=== PATIENT | male | born 1960 | race Caucasian/White ===

== ENCOUNTER 2020-02-23 09:40 | Outpatient (CLI) | payer MEDICARE, OTHER, SELFPAY ==
[2020-02-23 10:15] LABS: Basophils Absolute Auto 0.1 K/mm3 (0.0-0.1); Basophils Percent Auto 0.9 % (0.2-1.2); Eosinophils Absolute Auto 0.3 K/mm3 (0-0.3); Eosinophils Percent Auto 2.6 % (0-4.4); Hematocrit 57.7 % (42.0-52.0); Hemoglobin 19.6 g/dL (14.0-18.0); Immature Granulocyte Absolute 0.04 K/mm3 (0.00-0.031); Immature Granulocyte Percent A 0.3 % (0-0.5); Lymphocytes Absolute Auto 2.76 K/mm3 (0.9-3.2); Lymphocytes Percent Auto 22.2 % (18.3-44.2); Mean Corpuscular Hemoglobin 31.8 pg (26-34); Mean Corpuscular Volume 93.5 fl (80-100); Mean Platelet Volume 9.9 fl (7.4-10.4); Monocytes Percent Auto 8.1 % (2.6-8.5); Neutrophils Absolute Auto 8.2 K/mm3 (1.3-6.7); Neutrophils Percent Auto 65.9 % (45.5-73.1); Platelet Count Result 193 k/mm3 (150-375); Red Blood Count 6.17 M/mm3 (4.6-6.20); Red Cell Distribution Width 14.9 % (11.5-14.5); White Blood Count 12.5 K/mm3 (4.5-10.0)
[2020-02-23 10:35] LABS: Potassium 4.4 mmol/L (3.4-5.0)
[2020-02-23 10:39] LABS: Alanine Aminotransferase 22 U/L (4-50); Alkaline Phosphatase 100 U/L (38-126); Anion Gap 6 mmol/L (8-16); Aspartate Amino Transferase 20 U/L (17-59); Bilirubin,Total 0.8 mg/dL (0.2-1.3); Blood Urea Nitrogen 20 mg/dL (9-20); Calcium 9.6 mg/dL (8.4-10.2); Carbon Dioxide 33 mmol/L (22-30); Chloride 101 mmol/L (98-107); Cholesterol 220 mg/dL (0-200); Estimated Glomerular Filt Rate > 60; Glucose 130 mg/dL (75-110); HDL Direct 38 mg/dL; Sodium 140 mmol/L (137-145); Triglycerides 140 mg/dL (<150)
[2020-02-23 10:47] LABS: LDL Cholesterol Direct 165 mg/dL
[2020-02-23 11:06] LABS: Prostate Specific Antigen 0.9 ng/mL (< OR = 4.0)
[2020-02-23 11:48] LABS: Hemoglobin A1C 6.3 % (<5.7)
== END 2020-02-23 09:41 | disposition home or self-care (01) ==
PROVIDERS: PCP Internal Medicine; Visit Provider Clinical Nurse Specialist
DX: Z12.5 Encounter for screening for malignant neoplasm of prostate (principal); E78.5 Hyperlipidemia, unspecified; Z87.820 Personal history of traumatic brain injury; I10 Essential (primary) hypertension; Z51.81 Encounter for therapeutic drug level monitoring; Z79.899 Other long term (current) drug therapy
CPT/HCPCS: 36415; 80053; 80061; 80177; 83036; 84153; 85025; G0103

== ENCOUNTER 2020-03-03 13:37 | Outpatient (CLI) | payer MEDICARE, OTHER, SELFPAY ==
--- NOTE | ~2020-03-03 | CT_ITS ---
EXAMINATION: CT lung screening EXAM DATE: 03/03/2020 14:04 INDICATION: Solitary pulmonary nodule. Personal history of nicotine dependence. TECHNIQUE: Spiral low dose CT of the chest without contrast. Axial, coronal and sagittal images were reviewed. The dose-length product (DLP) for this examination was 228.99 mGy-cm. The exposure was t ailored according to patient size (auto mA exposure control), and iterative reconstruction (ASIR) was used as additional dose reduction technique. Comparison is made to prior examination from 02/09/2019 . FINDINGS: No change in the 3 and 4 mm nodules along the left major fissure consistent with granuloma s. There are no new or suspicious pulmonary nodules. Mild to moderate emphysema unchanged. Tracheobr onchial tree is patent. There is no mediastinal, hilar or axillary lymphadenopathy. There are no pleural or pericardial effusions. There is no pneumothorax. Heart normal in size. No evidence o f coronary arterial calcification. There is right renal cyst. There is thoracic spondylosis without osteoblastic or osteolytic lesions identified. IMPRESSION: Lung-RADS category 2, benign appearance or behavior (<1% chance of malignancy); recommend continued LDCT screening in 1 year. Reviewed, dictated and finalized at location A. S PLANNING COORDINATOR
== END 2020-03-03 13:38 | disposition home or self-care (01) ==
PROVIDERS: PCP Internal Medicine; Visit Provider Clinical Nurse Specialist
DX: Z12.2 Encounter for screening for malignant neoplasm of respiratory organs (principal); Z87.891 Personal history of nicotine dependence
CPT/HCPCS: G0297

== ENCOUNTER 2020-09-06 13:12 | Outpatient (CLI) | payer MEDICARE, OTHER, SELFPAY ==
[2020-09-06 13:58] LABS: Basophils Absolute Auto 0.1 K/mm3 (0.0-0.1); Basophils Percent Auto 0.9 % (0.2-1.2); Eosinophils Absolute Auto 0.3 K/mm3 (0-0.3); Eosinophils Percent Auto 4.1 % (0-4.4); Hemoglobin 18.5 g/dL (14.0-18.0); Immature Granulocyte Absolute 0.02 K/mm3 (0.00-0.031); Immature Granulocyte Percent A 0.3 % (0-0.5); Lymphocytes Absolute Auto 2.54 K/mm3 (0.9-3.2); Lymphocytes Percent Auto 31.9 % (18.3-44.2); Mean Corpuscular HGB Conc 33.6 g/dl (32-36); Mean Corpuscular Hemoglobin 31.1 pg (26-34); Mean Corpuscular Volume 92.6 fl (80-100); Mean Platelet Volume 10.5 fl (7.4-10.4); Monocytes Absolute Auto 0.6 K/mm3 (0.1-0.6); Monocytes Percent Auto 6.9 % (2.6-8.5); Neutrophils Absolute Auto 4.5 K/mm3 (1.3-6.7); Neutrophils Percent Auto 55.9 % (45.5-73.1); Platelet Count Result 195 k/mm3 (150-375); Red Blood Count 5.94 M/mm3 (4.6-6.20); Red Cell Distribution Width 13.2 % (11.5-14.5)
[2020-09-06 14:08] LABS: Anion Gap 10 mmol/L (8-16); Blood Urea Nitrogen 13 mg/dL (9-20); Calcium 9.1 mg/dL (8.4-10.2); Carbon Dioxide 26 mmol/L (22-30); Chloride 103 mmol/L (98-107); Estimated Glomerular Filt Rate > 60; Glucose 246 mg/dL (75-110); Hemoglobin A1C 6.6 % (<5.7); Potassium 3.6 mmol/L (3.4-5.0); Sodium 139 mmol/L (137-145)
[2020-09-09 10:54] LABS: Levetiracetam Keppra 8.5 mcg/mL (12.0-46.0)
== END 2020-09-06 13:13 | disposition home or self-care (01) ==
PROVIDERS: PCP Internal Medicine; Visit Provider Clinical Nurse Specialist
DX: R73.09 Other abnormal glucose (principal); I10 Essential (primary) hypertension; D75.1 Secondary polycythemia; Z87.820 Personal history of traumatic brain injury
CPT/HCPCS: 36415; 80048; 80177; 83036; 85025

== ENCOUNTER 2020-10-06 12:50 | Outpatient (CLI) | payer MEDICARE, OTHER, SELFPAY ==
[2020-10-06 13:44] LABS: Anion Gap 9 mmol/L (8-16); Blood Urea Nitrogen 19 mg/dL (9-20); Calcium 9.6 mg/dL (8.4-10.2); Carbon Dioxide 29 mmol/L (22-30); Chloride 100 mmol/L (98-107); Estimated Glomerular Filt Rate > 60; Glucose 226 mg/dL (75-110); Potassium 3.9 mmol/L (3.4-5.0); Sodium 138 mmol/L (137-145)
[2020-10-10 13:01] LABS: Levetiracetam Keppra 9.8 mcg/mL (12.0-46.0)
== END 2020-10-06 12:51 | disposition home or self-care (01) ==
LOC: ANHLAB 12:54
PROVIDERS: PCP Internal Medicine; Visit Provider Clinical Nurse Specialist
DX: I10 Essential (primary) hypertension (principal); Z87.820 Personal history of traumatic brain injury
CPT/HCPCS: 36415; 80048; 80177

== ENCOUNTER 2020-10-12 14:26 | Outpatient (CLI) | payer MEDICARE, OTHER, SELFPAY ==
--- NOTE | ~2020-10-12 | MR_ITS ---
EXAMINATION: MR lumbar spine wo con DATE: 10/12/2020 15:24 INDICATION: Low back pain. TECHNIQUE: Magnetic resonance imaging (MRI) of the lumbar spine was performed without intravenous con trast. Sequences included sagittal T2-weighted FSE, sagittal T2-weighted FS FSE, sagittal T1-weighted FSE, and axial T2-weighted FSE. COMPARISON: None FINDINGS: There is 3 mm retrolisthesis of L3 on L4 and L4 on L5. Vertebral body heights are normal. T here is mildly decreased disc height at L2-L3, L3-L4, and L4-L5. Epidural lipomatosis is noted. The d istal spinal cord signal intensity is normal. The conus medullaris is at L1. Partially visualized is a 10.1 cm cyst in right kidney. The following disc levels are specifically discussed: L1-L2: The disc does not extend beyond the endplate margin. There is mild bilateral facet joint osteo arthritis. There is no neural foraminal stenosis. There is no central canal stenosis. L2-L3: The disc is bulging. There is mild bilateral facet joint osteoarthritis. There is mild bilater al neural foraminal stenosis. There is mild central canal stenosis. L3-L4: The disc is bulging with superimposed left subarticular and foraminal zone extrusion with 2.5 cm superior extension to the suprapedicular level. There is no facet joint osteoarthritis. There is m ild right and moderate left neural foraminal stenosis. There is mild central canal stenosis. There is severe stenosis of left lateral recess at L3 from the suprapedicular to infrapedicular levels. L4-L5: The disc is bulging and has an annular fissure. There is moderate right and mild left facet noemy int osteoarthritis. There is mild right and moderate left neural foraminal stenosis. There is mild ce ntral canal stenosis. L5-S1: The disc does not extend beyond the endplate margin. There is severe bilateral facet joint ost eoarthritis. There is mild left neural foraminal stenosis. There is no central canal stenosis. IMPRESSION: 1. Moderate lumbar spondylosis with large extrusion on the left at L3-L4. Reviewed, dictated and finalized at location A.
== END 2020-10-12 14:27 | disposition home or self-care (01) ==
PROVIDERS: PCP Internal Medicine; Visit Provider Nurse Practitioner
DX: M54.5 Low back pain (principal); M47.816 Spondylosis without myelopathy or radiculopathy, lumbar region
CPT/HCPCS: 72148

== ENCOUNTER 2021-07-01 21:34 | Emergency (ER) | payer MEDICARE, OTHER, SELFPAY ==
[2021-07-01] VITALS (11 sets, daily range): BP systolic 176–191; BP diastolic 117–135; PULSE 83–101; RESP 13–23; TEMP 36.4; O2SAT 90–96
--- NOTE | ~2021-07-01 | CT_ITS ---
EXAMINATION: CTA chest PE protocol DATE: 07/01/2021 23:53 INDICATION: Hemoptysis TECHNIQUE: Computed tomography angiography (CTA) of the chest was performed with 100 mL Omnipaque-350 intravenous contrast timed to evaluate the pulmonary arteries. Coronal maximum intensity projection 3D-reconstructions were created by the technologist. The dose-length product (DLP) was 755.63 mGy-cm. Automated exposure control and iterative reconstruction technique were employed. COMPARISON: 03/03/2020 FINDINGS: There is moderate opacification of the pulmonary arteries. No pulmonary embolism is identif ied. There is moderate emphysema. There are minimal airspace opacities in the medial aspect of the cates perior segment of the left lower lobe. There is no pleural effusion or pneumothorax. No pathologicall y enlarged thoracic lymph nodes are identified. The heart size is normal. There is mild thoracic spon dylosis. There is a partially imaged 10.3 cm cyst of the right kidney. Punctate calcifications in an otherwise normal spleen likely represent healed granulomatous disease. IMPRESSION: 1. No pulmonary embolus identified, sensitivity limited by contrast bolus. 2. Minimal airspace opacities of the left lower lobe, likely infectious or inflammatory. Reviewed, dictated and finalized at location A. IMPRESSION: 1. No pulmonary embolus identified, sensitivity limited by contrast bolus. 2. Minimal airspace opacities of the left lower lobe, likely infectious or infl ammatory.
--- NOTE | ~2021-07-01 | XR_ITS ---
EXAMINATION: XR chest 1V portable INDICATION: Hemoptysis, cough TECHNIQUE: Portable AP chest at 2243 hours COMPARISON: 03/04/2010 FINDINGS: There is mild atelectasis scarring left lung base. No pleural effusion or pneumothorax is i dentified. The cardiomediastinal silhouette is normal. IMPRESSION: 1. Mild atelectasis of the left lung base. Reviewed, dictated and finalized at location A.
--- NOTE | 2021-07-01 22:18 | ECG_ITS ---
Measurements Intervals [place] Rate: 91 P: 42 [place]: 162 QRS: 25 QRSD: 103 T: 55 QT: 357 QTc: 441 Interpretive Statements SINUS RHYTHM WITH SINUS ARRHYTHMIA INCOMPLETE RIGHT BUNDLE-BRANCH BLOCK BORDERLINE ECG COMPARED TO ECG 04/08/2019 14:04:24 NO SIGNIFICANT CHANGES Electronically Signed On 07-02-2021 16:15:44 CDT by Niels Monroy M.D.
[2021-07-01 22:44] LABS: Basophils Absolute Auto 0.1 K/mm3 (0.0-0.1); Basophils Percent Auto 0.9 % (0.2-1.2); Eosinophils Absolute Auto 0.4 K/mm3 (0-0.3); Eosinophils Percent Auto 3.5 % (0-4.4); Hematocrit 57.6 % (42.0-52.0); Immature Granulocyte Absolute 0.04 K/mm3 (0.00-0.031); Immature Granulocyte Percent A 0.4 % (0-0.5); Lymphocytes Absolute Auto 3.44 K/mm3 (0.9-3.2); Lymphocytes Percent Auto 31.1 % (18.3-44.2); Mean Corpuscular Hemoglobin 31.5 pg (26-34); Mean Corpuscular Volume 95.5 fl (80-100); Mean Platelet Volume 10.1 fl (7.4-10.4); Monocytes Percent Auto 8.7 % (2.6-8.5); Neutrophils Absolute Auto 6.1 K/mm3 (1.3-6.7); Neutrophils Percent Auto 55.4 % (45.5-73.1); Platelet Count Result 199 k/mm3 (150-375); Red Blood Count 6.03 M/mm3 (4.6-6.20); Red Cell Distribution Width 13.9 % (11.5-14.5); White Blood Count 11.1 K/mm3 (4.5-10.0)
--- NOTE | 2021-07-01 22:47 | ED.URI ---
HPI - URI/Sore Throat General Chief Complaint: Upper Respiratory Infection Stated Complaint: Hemoptysis Time Seen by Provider: 07/01/21 22:19 Source: patient Mode of arrival: ambulatory Limitations: no limitations History of Present Illness HPI Narrative: This is a 60-year-old male that presents to the emergency department for hematemesis. Reports this has been ongoing since this afternoon. He is also currently out of his blood pressure medication. He thinks he has not had it in about a week. He has history of polycythemia, he was supposed to be doing phlebotomy every couple weeks. He has not done this in a couple years. Denies chest pain or shortness of breath. Related Data Home Medications Medication Instructions Recorded Confirmed hydrochlorothiazide 25 mg PO DAILY 07/01/21 Allergies Allergy/AdvReac Type Severity Reaction Status Date / Time No Known Allergies Verified 07/01/21 21:41 Review of Systems Review of Systems: CONSTITUTIONAL: Denies fever, CARDIOVASCULAR: Denies chest pain, or edema. RESPIRATORY: Reports cough. Denies dyspnea. All systems reviewed & are unremarkable except as noted in HPI and below PMFSH Past Medical History Medical History (Updated 07/02/21 @ 01:37 by Jolanta Cardona PA-C) Anxiety Chronic intractable headache Chronic skin ulcer Depression DM w/o complication type II History of traumatic brain injury HLD (hyperlipidemia) HTN (hypertension) Irritable bowel disease Polycythemia Pulmonary nodule Sleep apnea in adult Spinal stenosis Surgical History Surgical History History of cranial surgery x3 History of ear surgery Hx of hemorrhoidectomy x2 Family History Family History Father Diabetes mellitus Patient's father is , Onset Age: 88 Mother Emphysema lung Social History Social History (Updated 07/01/21 @ 22:54 by Jolanta Cardona PA-C) Smoking packs per day: 1.5 Smoking cigarettes per day: 30.0 Years smoked: 45 Smoking pack-years: 67.50 Smoking status: Heavy tobacco smoker Tobacco type: cigarettes Second hand tobacco smoke exposure: Yes Alcohol intake: never Substance use: current Substance use type: marijuana Gender identity (if verbalized by the patient): Male Spiritual care concerns: No Exam Narrative: GENERAL: Well-appearing, well-nourished, and in no acute distress. HEAD: Normocephalic, atraumatic. EYES: EOMI. ENT: Nares clear, no rhinorrhea or epistaxis. Mucous membranes moist. Bright red blood noted in the posterior oropharynx NECK: Supple. No adenopathy or masses. CHEST: Clear to auscultation. No respiratory distress. No wheezes rales or rhonchi HEART: Regular rate and rhythm. No murmur heard. Normal peripheral pulses. EXTREMITIES: Normal range of motion. No edema. SKIN: Warm, dry, no rash. NEURO: No focal deficits. Alert and oriented x3. PSYCH: Normal mood and affect Course Vital Signs Vital signs: Vital Signs Temperature 97.5 F L 07/01/21 21:36 Pulse Rate 97 07/01/21 21:36 Respiratory Rate 16 07/01/21 21:36 Blood Pressure 191/122 H 07/01/21 21:36 Pulse Oximetry 96 07/01/21 21:36 Temperature 97.5 F L 07/01/21 21:36 Pulse Rate 94 07/02/21 01:47 Respiratory Rate 19 07/02/21 01:47 Blood Pressure 214/153 H 07/02/21 01:47 Pulse Oximetry 95 07/02/21 01:47 MDM - URI/Sore Throat MDM Narrative Medical decision making narrative: Patient presents to the emergency department for hemoptysis today. Noted to be hypertensive in the ED. Reports he has been out of his blood pressure medications for about a week. Patient with history of polycythemia. CBC with hemoglobin of 19, hematocrit of 57.6. Metabolic panel without concerning findings. EKG without acute ST changes. Baseline troponin is negative. Covid swab was negative. Chest x-ray shows mild pulmonary
[2021-07-01] MEDS: hydroCHLOROthiazide 25 MG TABLET PO (22:50)
[2021-07-01 22:54] LABS: INR 0.9; Partial Thromboplastin Time 30.9 SECONDS (22.3-36.8); Prothrombin Time 12.2 Seconds (11.1-14.7)
[2021-07-01 22:57] LABS: D Dimer 0.51 ug/mL (<0.48)
[2021-07-01] MEDS: LOSARTAN POTASSIUM 100 MG TABLET PO (22:57)
[2021-07-01 23:02] LABS: Alanine Aminotransferase 26 U/L (4-50); Albumin Level 4.3 g/dL (3.5-5.1); Alkaline Phosphatase 103 U/L (38-126); Anion Gap 8 mmol/L (8-16); Aspartate Amino Transferase 23 U/L (17-59); Bilirubin,Total 0.5 mg/dL (0.2-1.3); Blood Urea Nitrogen 14 mg/dL (9-20); Calcium 9.1 mg/dL (8.4-10.2); Carbon Dioxide 27 mmol/L (22-30); Chloride 105 mmol/L (98-107); Estimated CRCL calculation 102 ml/min; Estimated Glomerular Filt Rate > 60; Glucose 108 mg/dL (65-110); Potassium 3.7 mmol/L (3.4-5.0); Sodium 140 mmol/L (137-145)
[2021-07-01 23:12] LABS: Troponin I < 0.012 ng/mL (0.000-0.034)
--- NOTE | 2021-07-01 23:40 | PC.NURSE ---
Patient taken to CT via stretcher.
[2021-07-02] VITALS (15 sets, daily range): BP systolic 191–214; BP diastolic 111–153; PULSE 76–97; RESP 13–20; O2SAT 92–95
[2021-07-02] MEDS: LABETALOL HCL INJ 100 MG/20 ML VIAL 20 MG IV PUSH (00:27)
--- NOTE | 2021-07-02 00:47 | PC.NURSE ---
Patient stated I just want to let you know that I will not stay. I will sign the paper because I will not stay in the hospital. ERP notified.
[2021-07-02 01:01] LABS: SARS-CoV-2 RNA PCR Negative
--- NOTE | 2021-07-02 01:34 | PC.NURSE ---
Patient and ERP and this RN discussed plan of care for patient. Patient refusing to stay in hospital or to be admitted. Patient informed of risks of leaving AMA and benefits of staying for more testing and patient still refusing. Patient a/ox4, has son at bedside and states he will sign AMA form.
== END 2021-07-02 01:49 | disposition left against medical advice (07) ==
PROVIDERS: Physician Assistant; Emergency Provider Emergency Medicine; PCP Internal Medicine
DX: R04.2 Hemoptysis (principal); I16.0 Hypertensive urgency; D75.1 Secondary polycythemia; Z20.822 Contact with and (suspected) exposure to COVID-19; E11.9 Type 2 diabetes mellitus without complications; Z87.820 Personal history of traumatic brain injury; I10 Essential (primary) hypertension; K58.9 Irritable bowel syndrome, unspecified; G47.30 Sleep apnea, unspecified; F17.210 Nicotine dependence, cigarettes, uncomplicated; I45.10 Unspecified right bundle-branch block
CPT/HCPCS: 36415; 71045; 71275; 80053; 84484; 85025; 85380; 85610; 85730; 93005; 96374; 99284; A9270; C9803; Q9967; U0003; U0005

== ENCOUNTER 2021-11-23 15:14 | Outpatient (CLI) | payer MEDICARE, OTHER, SELFPAY ==
[2021-11-27 08:02] LABS: Levetiracetam Keppra 9.5
== END 2021-11-23 15:15 | disposition home or self-care (01) ==
LOC: ANHLAB 15:17
PROVIDERS: PCP Internal Medicine; Visit Provider Clinical Nurse Specialist
DX: Z87.820 Personal history of traumatic brain injury (principal)
CPT/HCPCS: 36415; 80177

== ENCOUNTER 2022-12-24 13:14 | Outpatient (CLI) | payer MEDICARE, SELFPAY ==
[2022-12-24 19:29] LABS: Hemoglobin A1C 6.2 % (<5.7)
[2022-12-24 19:34] LABS: Alanine Aminotransferase 25 U/L (6-50); Alkaline Phosphatase 85 U/L (38-126); Anion Gap 8 mmol/L (8-16); Aspartate Amino Transferase 25 U/L (17-59); Bilirubin,Total 0.7 mg/dL (0.2-1.3); Blood Urea Nitrogen 15 mg/dL (9-20); Carbon Dioxide 28 mmol/L (22-30); Chloride 103 mmol/L (98-107); Cholesterol 244 mg/dL (0-200); Estimated Glomerular Filt Rate > 60; Glucose 189 mg/dL (65-110); HDL Direct 42 mg/dL; Potassium 3.8 mmol/L (3.4-5.0); Sodium 139 mmol/L (137-145); Triglycerides 119 mg/dL (<150)
[2022-12-24 19:43] LABS: Basophils Absolute Auto 0.1 K/mm3 (0.0-0.1); Basophils Percent Auto 1.1 % (0.2-1.2); Eosinophils Absolute Auto 0.3 K/mm3 (0-0.3); Eosinophils Percent Auto 2.7 % (0-4.4); Hematocrit 58.4 % (42.0-52.0); Hemoglobin 19.3 g/dL (14.0-18.0); Immature Granulocyte Absolute 0.02 K/mm3 (0.00-0.031); Immature Granulocyte Percent A 0.2 % (0-0.5); Lymphocytes Percent Auto 27.3 % (18.3-44.2); Mean Corpuscular Hemoglobin 31.7 pg (26-34); Mean Corpuscular Volume 95.9 fl (80-100); Mean Platelet Volume 10.9 fl (7.4-10.4); Monocytes Absolute Auto 0.7 K/mm3 (0.1-0.6); Monocytes Percent Auto 6.9 % (2.6-8.5); Neutrophils Absolute Auto 5.9 K/mm3 (1.3-6.7); Neutrophils Percent Auto 61.8 % (45.5-73.1); Platelet Count Result 194 k/mm3 (150-375); Red Blood Count 6.09 M/mm3 (4.6-6.20); Red Cell Distribution Width 14.2 % (11.5-14.5); White Blood Count 9.5 K/mm3 (4.5-10.0)
[2022-12-24 19:45] LABS: LDL Cholesterol Direct 165 mg/dL
[2022-12-25 17:53] LABS: Prostate Specific Antigen 0.8 ng/mL (< OR = 4.0)
== END 2022-12-24 13:15 | disposition home or self-care (01) ==
LOC: ANHGOSHLAB 13:15
PROVIDERS: PCP Internal Medicine; Visit Provider Internal Medicine
DX: Z12.5 Encounter for screening for malignant neoplasm of prostate (principal); E11.9 Type 2 diabetes mellitus without complications; I10 Essential (primary) hypertension; D75.1 Secondary polycythemia
CPT/HCPCS: 36415; 80053; 80061; 83036; 84153; 85025; G0103

== ENCOUNTER 2023-07-22 11:42 | Outpatient (CLI) | payer MEDICARE, SELFPAY ==
[2023-07-22 18:59] LABS: Alanine Aminotransferase 22 U/L (6-50); Albumin Level 4.2 g/dL (3.5-5.1); Alkaline Phosphatase 81 U/L (38-126); Anion Gap 6 mmol/L (4-12); Aspartate Amino Transferase 37 U/L (17-59); Bilirubin,Total 0.8 mg/dL (0.2-1.3); Blood Urea Nitrogen 17 mg/dL (9-20); Calcium 9.8 mg/dL (8.4-10.2); Carbon Dioxide 30 mmol/L (22-30); Chloride 106 mmol/L (98-107); Cholesterol 218 mg/dL (0-200); Estimated Glomerular Filt Rate > 60; Glucose 115 mg/dL (65-110); HDL Direct 44 mg/dL; Potassium 3.8 mmol/L (3.4-5.0); Sodium 142 mmol/L (137-145); Triglycerides 86 mg/dL (<150)
[2023-07-22 19:11] LABS: LDL Cholesterol Direct 146 mg/dL
[2023-07-22 19:24] LABS: Basophils Absolute Auto 0.1 K/mm3 (0.0-0.1); Basophils Percent Auto 0.8 % (0.2-1.2); Eosinophils Absolute Auto 0.3 K/mm3 (0-0.3); Eosinophils Percent Auto 2.3 % (0-4.4); Hematocrit 60.2 % (42.0-52.0); Hemoglobin 19.6 g/dL (14.0-18.0); Immature Granulocyte Absolute 0.03 K/mm3 (0.00-0.031); Immature Granulocyte Percent A 0.3 % (0-0.5); Lymphocytes Absolute Auto 2.63 K/mm3 (0.9-3.2); Lymphocytes Percent Auto 23.4 % (18.3-44.2); Mean Corpuscular HGB Conc 32.6 g/dl (32-36); Mean Corpuscular Volume 95.3 fl (80-100); Mean Platelet Volume 11.1 fl (7.4-10.4); Monocytes Absolute Auto 0.9 K/mm3 (0.1-0.6); Monocytes Percent Auto 7.6 % (2.6-8.5); Neutrophils Absolute Auto 7.4 K/mm3 (1.3-6.7); Neutrophils Percent Auto 65.6 % (45.5-73.1); Platelet Count Result 213 k/mm3 (150-375); Red Blood Count 6.32 M/mm3 (4.6-6.20); White Blood Count 11.3 K/mm3 (4.5-10.0)
[2023-07-22 21:38] LABS: Hemoglobin A1C 5.9 % (<5.7)
[2023-07-26 14:47] LABS: Apolipoprotein B 117 mg/dL
== END 2023-07-22 11:43 | disposition home or self-care (01) ==
PROVIDERS: PCP Internal Medicine; Visit Provider Internal Medicine
DX: D75.1 Secondary polycythemia (principal); E11.9 Type 2 diabetes mellitus without complications; F17.200 Nicotine dependence, unspecified, uncomplicated; I10 Essential (primary) hypertension; Z87.820 Personal history of traumatic brain injury
CPT/HCPCS: 36415; 80053; 80061; 82172; 83036; 84443; 85025

== ENCOUNTER 2024-07-16 11:41 | Outpatient (CLI) | payer MEDICARE, SELFPAY ==
--- OUTSIDE RECORDS SUMMARY | 2024-07-16 12:26 | XMS_ITS | CONTINUITY OF CARE DOCUMENT ---
Author Name heidi gordon Address Unknown Organization [facility] Address [address] [place] [address] Phone [phone] Care Team Providers Care Edger Technician Name Role Phone Daniel Ramos MD Unavailable [phone] SWATI HDZ MD Unavailable [phone] PROBLEMS Condition Status Date Provider Notes Tobacco abuse active Daniel Ramos MD Chest pain-type to be determined active Daniel Ramos MD HTN controlled active Daniel Ramos MD Other symptoms involving cardiovascular system completed - Daniel Ramos MD ENCOUNTERS Date Type Provider Location Encounter Diag nosis - In-person encounter Office Visit Daniel Ramos MD [place] [facility] Other symptoms involving cardiovascular systemTobacco abuse - In-person encounter Office Visit Daniel Ramos MD [place] [facility] - In-person encounter Office Visit Daniel Ramos MD [place] [facility] HTN controlledChest pain-type to be determined VITAL SIGNS Date Observation Value Provider blood pressure, diastolic 108 mm[Hg] Madyson Sprague blood pressure, systolic 157 mm[Hg] Cristina Sprague pulse rate 85 /min Lynne gan oxygen saturation, oximetry 92 % Lynne Sprague respiratory rate E&M 18 /min Willy Sprague Body Mass Index (Ratio) 30.60 kg/m2 Sanjana Sprague weight E&M 219.4 [lb_av] Lynne scott Body Mass Index (Ratio) 30.54 kg/m2 Macy lul Bautista blood pressure, diastolic, left arm 104 m m[Hg] Daniel Ramos MD blood pressure, systolic, left arm 148 mm [Hg] Daniel Ramos MD blood pressure, diastolic, right arm 120 mm[Hg] Anesindy Bautista blood pressure, systolic, right arm 158 m m[Hg] Aneatrcorona Bautista blood pressure, diastolic 113 mm[Hg] An yumiko Michele blood pressure, systolic 154 mm[Hg] Ane sindy Bautista pulse rate 82 /min Amy Bautista oxygen saturation, oximetry 95 % Amy Bautista respiratory rate E&M 18 /min Harpreet Bautista weight E&M 219 [lb_av] Amy Bautista blood pressure, diastolic, left arm 96 mm [Hg] Kasie Cantor blood pressure, systolic, left arm 152 mm [Hg] Kasie Cantor blood pressure, diastolic, right arm 101 mm[Hg] Kasie Cantor blood pressure, systolic, right arm 138 m m[Hg] Kasie Cantor blood pressure, diastolic 96 mm[Hg] Jordan Cantor blood pressure, systolic 152 mm[Hg] Thor Cantor Body Mass Index (Ratio) 29.84 kg/m2 Ml Cantor pulse rate 76 /min Kasie Cantor oxygen saturation, oximetry 96 % Kasie Cantor respiratory rate E&M 18 /min Kasie Cantor weight E&M 214 [lb_av] Kasie Cantor height E&M 71 [in_i] Kasie Cantor ALLERGIES No Known Drug Allergies HISTORY OF MEDICATION USE Medication Status Instructions Dates Provider Indications Com ments KEPPRA 500 MG ORAL TABLET active 1 tab twice daily Kasie Cantor ATENOLOL 100 MG ORAL TABLET active 1 tab daily Kasie Cantor LISINOPRIL-HYDROCHL OROTHIAZIDE 20-25 MG ORAL TABLET active 1 tab daily Kasie Cantor SOCIAL HISTORY Date Observation Value Provider social history E&M Smoking Histo ry: P atient currently smokes every day. P atient has been counseled to quit. Daniel Ramos MD social history reviewed E&M revi ewed - no changes required Daniel Ramos MD smoking/tobacco cess ation, patient education and counseling yes Lynne Sprague smoking, date started 1971 Edita feliciano Celestine smoking history, tot al pack/day 1.5 LynneJovana Sprague cigarette use yes Lynne Stef shearerbeverley smoking status Current every day smoker Michael Go Sprague smoking, date started 1970 Daniel Ramos MD smoking history, tot al pack/day 1.5 Daniel Ramos MD cigarette use yes Daniel Ramos MD smoking status Current every day smoker G lisandro Ramos MD social history reviewed E&M revi ewed - no changes required Daniel Ramos MD smoking/tobacco cess ation, patient education and counseling yes Daniel Ramos MD social history reviewed E&M revi ewed - no changes required Tessa Alamo smoking/tobacco cess ation, patient education and counseling yes Daniel Ramos MD smoking, date started 1971 Kasie Cantor smoking history, tot al pack/day 1.5 Kasie Cantor cigarette use yes Kasie Cantor smoking status Current every day smoker Luba prabhakar Cantor FAMILY HISTORY Family Member Condition Father Family History of Di abetes: Father Family History of Hy pertension: Father Family History of Di abetes: Father Family History of Di abetes: INSURANCE PROVIDERS Payer name Policy type / Coverage type [place] [employer] ID [id number] [id number] [place] Medicare [id number] TREATMENT PLAN Date Name Performer Cardiology () Robb hernandez Cardiology ():BP t cher: 157/108 P rior BP: 154/113 (01/20/2014) Robb Oshea Cardiology (LF):No complaints. A luis fernando Oshea Date Name Kidney Ultrasound Renal Artery Duplex STR - Nuclear Complete Echo HISTORY OF PROCEDURES Procedure Date Procedure Name Provider Procedure Notes S tatus SNOMED-CT: 588969888 Smoking Cessation Counseling Daniel Ramos MD completed SNOMED-CT: 48731212 Physical Exam, Performed: Pulse Exam of Foot Daniel Ramos MD completed EKG Danile Ramos MD completed SNOMED-CT: [id number] Current Medications Documented Daniel Ramos MD completed EKG Daniel Ramos MD completed
--- OUTSIDE RECORDS SUMMARY | 2024-07-16 12:26 | XMS_ITS | Clinical Summary ---
Author Organization [facility] Address [address] [place] [phone] Care Team Providers Care Supervisor Communications And Signals Name Role Phone Romero Robin DO Primary Care Provider Allergies No known active allergies Medications levETIRAcetam (KEPPRA) 500 mg tablet Take 500 mg by mouth 2 times daily. Active amLODIPine (NORVASC) 2.5 mg tablet 09/06/2021 Active losartan-hydroCH LOROthiazide (HYZAAR) 100-25 mg tablet Take 1 Tablet by mouth daily. 04/18/2022 Active Active Problems Problem Noted Date Diagnosed Date Erythrocytosis 01/26/2019 History of smoking 25-50 pack years 01/26/2019 Family History Relation Name Status Comments Brother 1 Alive Brother 2 Alive Daughter Alive Father Mother Sister 1 Sister 2 Alive Son 1 Alive Son 2 Alive Son 3 Alive Social History Tobacco Use Types Packs/Day Years Used Date Smoking Tobacco: Every Day Cigarettes Smokeless Tobacco: Never Tobacco Cessation:Ready to Q uit: Not Asked; Counseling Given: Not Answered Alcohol Use Standard Drinks/Week Comments Not Currently 0 (1 standard drink = 0.6 oz pur e alcohol) Sex and Gender Information Value Date Recorded Sex Assigned at Not on file 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 Gender Identity Not on file Sexual Orientation Not on file Last Filed Vital Signs Vital Sign Reading Time Taken Comments Blood Pressure 161/100 07/23/2022 8:55 AM CDT Pulse 109 07/23/2022 8:52 AM CDT Temperature 35.8 C (96.4 F) 07/23/2022 8:52 AM CDT Respiratory Rate 10 07/23/2022 8:52 AM CDT Oxygen Saturation 96% 07/23/2022 8:52 AM CDT Inhaled Oxygen Concentration - - Weight 95.3 kg (210 lb) 07/23/2022 8:52 AM CDT Height 177.8 cm (5' 10 ) 10/19/2021 2:38 PM CDT Body Mass Index 30.13 10/19/2021 2:38 PM CDT Plan of Treatment Health Maintenance Due Date Last Done Comments PNEUMOCOCCAL VACCINE 0-49 YEARS (1 of 2 - PCV) 968 DTAP/TDAP/TD VACCINES (1 - Tdap) 1980 COLORECTAL SCREENING 2006 Colorectal Cancer Screening 2006 FIT-DNA Q 3 years 2006 FIT/FOBT Q 1 year 2006 Flex Sig/CT Colonography Q 5 years 2006 ZOSTER VACCINE (1 of 2) 08/15/2011 INFLUENZA VACCINE (#1) 2023 RSV VACCINE (60+ or ) (1 - 1-dose 75+ series) 2036 Insurance Care Teams Supervisor Communications And Signals Relationship Specialty Start Date End Date Romero Robin DO [address] [facility] [address] [place] [id number] PCP - General Internal Medicine 01/09/19
--- OUTSIDE RECORDS SUMMARY | 2024-07-16 12:26 | XMS_ITS | Encounter Summary ---
Author Organization [facility] Address 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
--- OUTSIDE RECORDS SUMMARY | 2024-07-16 12:26 | XMS_ITS | Encounter Summary ---
Author Organization [facility] Address 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
--- OUTSIDE RECORDS SUMMARY | 2024-07-16 12:26 | XMS_ITS | Encounter Summary ---
Author Organization [facility] Address [address] [place] [address] Care Team Providers Care Sql Developer Name Role Phone Romero Robin DO Primary Care Provider Encounter Details Date Type Department Care Team (Latest Contact Info) Description 03/13/2008 Outpatient Historical [facility] Kirt Balderas, PhD Dept of Neuropsychology [address] [place] [phone] Traum Subarachnoid Hem ([facility]) Social History Tobacco Use Types Packs/Day Years Used Date Smoking Tobacco: Never Assessed Sex and Gender Information Value Date Recorded Sex Assigned at Not on file 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 Gender Identity Not on file Sexual Orientation Not on file documented as of this encounter Plan of Treatment Not on file documented as of this encounter Visit Diagnoses Diagnosis Subarachnoid hemorrhage following injury, without mention of open intracranial wound, unspecified state of consciousness (CMS/HCC) Subarachnoid hemorrhage following injury, without mention of open intracranial wound, unspecified state of consciousness documented in this encounter Care Teams Sql Developer Relationship Specialty Start Date End Date Romero Robin DO [address] [facility] [address] [place] [address] PCP - General Internal Medicine 01/09/19 documented as of this encounter
--- OUTSIDE RECORDS SUMMARY | 2024-07-16 12:26 | XMS_ITS | Encounter Summary ---
Author Organization [facility] Address [address] [place] [address] Care Team Providers Care Molecular Biology Professor Name Role Phone Romero Robin DO Primary Care Provider Encounter Details Date Type Department Care Team (Latest Contact Info) Description 06/04/2007 Outpatient Historical [facility] Kirt Balderas, PhD Dept of Neuropsychology [address] [place] [phone] Brain Hem NEC-Mod Coma ([facility]) Social History Tobacco Use Types Packs/Day Years Used Date Smoking Tobacco: Never Assessed Sex and Gender Information Value Date Recorded Sex Assigned at Not on file 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
--- OUTSIDE RECORDS SUMMARY | 2024-07-16 12:26 | XMS_ITS | Encounter Summary ---
Author Organization [facility] Address [address] [place] [address] Care Team Providers Care Electrophysiology Scientist Name Role Phone Romero Robin DO Primary Care Provider Encounter Details Date Type Department Care Team (Latest Contact Info) Description 07/19/2007 Outpatient Historical [facility] ST Hand Therapy [address] [place] [address] Tono Cordoba MD [address] [place] [address] Other Specified Rehabilitation Procedure (Primary Dx) Social History Tobacco Use Types Packs/Day Years Used Date Smoking Tobacco: Never Assessed Sex and Gender Information Value Date Recorded Sex Assigned at Not on file 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
--- OUTSIDE RECORDS SUMMARY | 2024-07-16 12:26 | XMS_ITS | Encounter Summary ---
Author Organization [facility] Address 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
--- OUTSIDE RECORDS SUMMARY | 2024-07-16 12:26 | XMS_ITS | Encounter Summary ---
Author Organization [facility] Address [address] [place] [address] Care Team Providers Care Animal Attendants And Trainers Name Role Phone Romero Robin DO Primary Care Provider Encounter Details Date Type Department Care Team (Latest Contact Info) Description 04/14/2007 Outpatient Historical [facility] ST Hand Therapy [address] [place] [address] Tono Cordoba MD [address] [place] [address] Other Specified Rehabilitation Procedure (Primary Dx) Social History Tobacco Use Types Packs/Day Years Used Date Smoking Tobacco: Never Assessed Sex and Gender Information Value Date Recorded Sex Assigned at Not on file 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
--- OUTSIDE RECORDS SUMMARY | 2024-07-16 12:26 | XMS_ITS | Encounter Summary ---
Author Organization [facility] Address 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
--- OUTSIDE RECORDS SUMMARY | 2024-07-16 12:26 | XMS_ITS | Continuity of Care Document ---
Author Organization [facility] Address [address] [place] [address] [facility] [address] [place] [address] Phone Care Team Providers Care International Relations Teacher Name Role Phone Stephen Sparkshil Unavailable Unavailable Procedures Procedure Date Office/outpatient Visit, Est Advance Directives Directive Yes / No Effective Date File Name No Information Encounters Encounter Description Practice Location Reason(s) For Visit Diagnoses Date Provider Providers Copied on Encounter Office/outpat ient Visit, Est [facility], [id number] [place] [address] [address], [place], [place], [address], [place] tel:[phone] [facility] No Information [address] [facility] [address], [place], [address], [place]. tel:[phone] Family History Family Member Type Diagnosis Age At Onset No Information Payers Payer name Insurance type Covered republican ID Authoropala radha(s) Samantha Kaiser Hayward [id number] Social History Type Description Quantity Date Captured Comments Sex Male Smoking Status No Information Chief Complaint And Reason For Visit No Information Reason For Referral Reason For Referral No Information History Of Present Illness Encounter Date Complaint History Of Prese nt Illness No Information Functional Status Date Functional Assessmen t No Information Instructions Date Instruction Additional Infor mation No Information Assessments Type Assessment Date No Information Patient Care Teams Name Effective Dates (start - stop) Status Members No Information
--- OUTSIDE RECORDS SUMMARY | 2024-07-16 12:26 | XMS_ITS | Encounter Summary ---
Author Organization [facility] Address [address] [place] [address] Care Team Providers Care Physical Plant Manager Name Role Phone Romero Robin DO Primary Care Provider Encounter Details Date Type Department Care Team (Late st Contact Info) Description 12/26/[address] 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
--- OUTSIDE RECORDS SUMMARY | 2024-07-16 12:26 | XMS_ITS | Encounter Summary ---
Author Organization [facility] Address 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
--- OUTSIDE RECORDS SUMMARY | 2024-07-16 12:26 | XMS_ITS | Encounter Summary ---
Author Organization [facility] Address [address] [place] [address] Care Team Providers Care Satellite Dish Installer Name Role Phone Romero Robin DO Primary Care Provider Encounter Details Date Type Department Care Team (Late st Contact Info) Description 02/25/2007 Outpatient Historical [facility] Tono Cordoba MD [address] [place] [address] Closed Skull Fx NEC/Br Injury NEC (CMS/HCC) (Primary Dx); Other Facial Bones, Closed Fracture (CMS/HCC); Malar and Maxillary Bones, Closed Fracture (CMS/HCC) Social History Tobacco Use Types Packs/Day Years Used Date Smoking Tobacco: Never Assessed Sex and Gender Information Value Date Recorded Sex Assigned at Not on file Legal 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 Male 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 Gender Identity Not on file Sexual Orientation Not on file documented as of this encounter Plan of Treatment Not on file documented as of this encounter Visit Diagnoses Diagnosis Other closed skull fracture with intracranial injury of other and unspecified nature, unspecified state of consciousness- Primary Other facial bones, closed fracture Malar and maxillary bones, closed fracture documented in this encounter Care Teams Satellite Dish Installer Relationship Specialty Start Date End Date Romero Robin DO [address] [facility] [address] [place] [address] PCP - General Internal Medicine 01/09/19 documented as of this encounter
--- OUTSIDE RECORDS SUMMARY | 2024-07-16 12:26 | XMS_ITS | Encounter Summary ---
Author Organization [facility] Address 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 Gender Identity Not on file Sexual Orientation Not on file documented as of this encounter Plan of Treatment Not on file documented as of this encounter Procedures Procedure Name Priority Date/Time Associated Diagnosis Comments PATHOLOGY Routine 02/13/2008 9:25 AM TEST ADMINISTRATOR HEMOGLOBIN AND HEMATOCRIT Stat 02/13/2008 6:20 AM TEST ADMINISTRATOR documented in this encounter Results * PATHOLOGY (02/13/2008 9:25 AM TEST ADMINISTRATOR) FINAL REPORT [address] [place], [place] [address] Patient: NITISH MAJANO : 1960 Procedure Date: 02/13/2008 Accession Date: 02/13/2008 Case No: [id number] Ordering Dr: Yordan BENITEZ Case types AW, BW, FW, NW and SH are performed by [facility] [place] [place] SURGICAL PATHOLOGY & NON-GYNECOLOGIC CYTOPATHOLOGY REPORT DIAGNOSIS RIGHT AUDITORY CANAL, CANALOPLASTY: - KERATINOUS DEBRIS, WITH DEGENERATED BONE (SEE DESCRIPTION). - MILD CHRONIC INFLAMMATION. - BACTERIA PRESENT. Specimen Description: Right auditory canal lesion. Operative Procedure: Right canaloplasty. Patient Information/History/ Diagnosis: Right post traumatic complex lesion, right auditory canal. Gross: Received in a single container and labeled Nitish Majano., right auditory canal lesion is a 1.0 x 0.6 x 0.2-cm aggregate of ulloa irregular pieces of tissue and blood. The entire specimen is submitted in cassette A1. LWL/PJS 02.13.2008 09:52 am Microscopic: The section is labeled [id number], Nitish Majano. The excised tissue displays portions of tissue covered by stratified squamous epithelium with underlying mild chronic inflammation, associated with keratinous debris and discontinuous pieces of degenerated/devitali zed bone. A Gram stain is performed, and although there is some overstaining of the preparation, there appears to be occasional bacterial organisms that are intermingled within the debris. Clinicopathologic correlation is recommended. HARSHAK/BRANDON 02.16.2008 01:36 pm Staging Form: No. ELECTRONIC SIGNATURE FOR ELVER PURCELL M.D.- 02/16/08 03:10 pm INTERFACE SYSTEM 02/13/2008 9:25 AM TEST ADMINISTRATOR [facility] Norman Benitez MD PATHOLOGY/CYTOLOGY ORDERABL ES Final Result INTERFACE SYSTEM Refer to clinic/hospital department * (ABNORMAL) HEMOGLOBIN AND HEMATOCRIT (02/13/2008 6:20 AM TEST ADMINISTRATOR) HEMATOCRIT 52.5(H) 40.0 - 48.0 % [facility] HEMOGLOBIN 17.8(H) 13.6 - 16.5 g/dL [facility] Blood specimen (specimen) 02/13/2008 6:20 AM TEST ADMINISTRATOR 02/13/2008 6:44 AM TEST ADMINISTRATOR G Norman Benitez MD HEMATOLOGY ORDERABLES Final Result INTERFACE SYSTEM Refer to clinic/hospital department [facility] CLIA# [id number] [address] [place] [address] documented in this encounter Visit Diagnoses Diagnosis Intracranial injury of other and unspecified nature, without mention of open intracranial wound, unspecified state of consciousness documented in this encounter Care Teams Crop Quantitative Geneticist Relationship Specialty Start Date End Date Romero Robin DO [address] [facility] [address] [place] [address] PCP - General Internal Medicine 01/09/19 documented as of this encounter
--- OUTSIDE RECORDS SUMMARY | 2024-07-16 12:26 | XMS_ITS | Referral Summary ---
Author Organization [facility] Address [address] [place] [address] Care Team Providers Care Conductor And Engineer Name Role Phone Romero Robin DO Primary Care Provider [phone] Allergies No known active allergies Medications levETIRAcetam (KEPPRA) 500 mg tablet Take 1 tablet (500 mg total) by mouth 2 (two) times a day 08/13/2008 Active losartan-hydroch lorothiazide (HYZAAR) 100-25 mg per tablet Take 1 tablet by mouth daily 10/18/2023 Active amLODIPine (NORVASC) 2.5 mg tablet Take 1 tablet (2.5 mg total) by mouth daily 09/05/2023 Active Active Problems Problem Noted Date Diagnosed Date History of smoking 25-50 pack years 01/26/2019 Erythrocytosis 01/26/2019 Frequent headaches 07/12/2016 Injury of head 12/20/2011 Social History Tobacco Use Types Packs/Day Years Used Date Smoking Tobacco: Every Day Cigarettes Smokeless Tobacco: Never Alcohol Use Standard Drinks/Week Comments Not Currently 0 (1 standard drink = 0.6 oz pur e alcohol) Sex and Gender Information Value Date Recorded Sex Assigned at Not on file Legal Sex Male 8:05 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 Gender Identity Not on file Sexual Orientation Not on file Occupation Industry Job Start Date Job End Date disability Not on file Not on file Not on file Last Filed Vital Signs Vital Sign Reading Time Taken Comments Blood Pressure 145/90 11/15/2023 1:39 PM CDT Pulse 96 11/15/2023 1:39 PM CDT Temperature 36.4 C (97.6 F) 11/15/2023 1:39 PM CDT Respiratory Rate 18 11/15/2023 1:39 PM CDT Oxygen Saturation 95% 11/15/2023 1:39 PM CDT Inhaled Oxygen Concentration - - Weight 89.8 kg (198 lb) 11/15/2023 1:39 PM CDT Height 177.8 cm (5' 10 ) 10/08/2020 11:31 AM CDT Body Mass Index 28.41 10/08/2020 11:31 AM CDT Plan of Treatment Not on file Insurance MEDICARE [facility] MEDICARE ADVANTAGE MEDICARE [facility] MEDICARE ADVANTAGE Care Teams Conductor And Engineer Relationship Specialty Start Date End Date Romero Robin DO PCP - General Internal Medicine 11/15/23
--- OUTSIDE RECORDS SUMMARY | 2024-07-16 12:26 | XMS_ITS | Encounter Summary ---
Author Organization [facility] Address [address] [place] [address] Care Team Providers Care Pharmacy Delivery Driver Name Role Phone Romero Robin DO Primary Care Provider Encounter Details Date Type Department Care Team (Late st Contact Info) Description 02/24/2007 Outpatient Historical [facility] Silva MD [address] [place] [address] Social History Tobacco Use Types Packs/Day Years Used Date Smoking Tobacco: Never Assessed Sex and Gender Information Value Date Recorded Sex Assigned at Not on file Legal Sex Male 5:27 AM HANDLE SEWER Gender Identity Not on file Sexual Orientation Not on file documented as of this encounter Plan of Treatment Not on file documented as of this encounter Procedures Procedure Name Priority Date/Time Associated Diagnosis Comments POC GLUCOSE Routine 03/01/2007 4:08 PM HANDLE SEWER POC GLUCOSE Routine 03/01/2007 11:38 AM HANDLE SEWER POC GLUCOSE Routine 03/01/2007 6:23 AM HANDLE SEWER POC GLUCOSE Routine 02/28/2007 8:29 PM HANDLE SEWER POC GLUCOSE Routine 02/28/2007 4:29 PM HANDLE SEWER POC GLUCOSE Routine 02/28/2007 6:15 AM HANDLE SEWER POC GLUCOSE Routine 02/27/2007 9:06 PM HANDLE SEWER POC GLUCOSE Routine 02/27/2007 4:19 PM HANDLE SEWER POC GLUCOSE Routine 02/27/2007 12:02 PM HANDLE SEWER POC GLUCOSE Routine 02/27/2007 6:02 AM HANDLE SEWER POC GLUCOSE Routine 02/26/2007 8:22 PM HANDLE SEWER POC GLUCOSE Routine 02/26/2007 4:15 PM HANDLE SEWER POC GLUCOSE Routine 02/26/2007 11:36 AM HANDLE SEWER POC GLUCOSE Routine 02/26/2007 6:22 AM HANDLE SEWER POC GLUCOSE Routine 02/25/2007 8:43 PM HANDLE SEWER POC GLUCOSE Routine 02/25/2007 5:00 PM HANDLE SEWER POC GLUCOSE Routine 02/25/2007 11:50 AM HANDLE SEWER CBC WITH DIFFERENTIAL Routine 02/25/2007 6:30 AM HANDLE SEWER CBC WITH DIFFERENTIAL Routine 02/25/2007 6:30 AM HANDLE SEWER C-REACTIVE PROTEIN Routine 02/25/2007 6: 30 AM HANDLE SEWER TSH Routine 02/25/2007 6:30 AM HANDLE SEWER CORTISOL LEVEL Routine 02/25/2007 6:30 AM HANDLE SEWER COMPREHENSIVE METABOLIC PANEL Routine 02/25/2007 6:30 AM HANDLE SEWER POC GLUCOSE Routine 02/25/2007 6:11 AM HANDLE SEWER POC GLUCOSE Routine 02/24/2007 8:47 PM HANDLE SEWER URINALYSIS W/REFLEX MICROSCOPIC Routine 02/24/2007 7:04 PM HANDLE SEWER documented in this encounter Results * (ABNORMAL) POC GLUCOSE (03/01/2007 4:08 PM HANDLE SEWER) GLUCOSE POC 103(H) 65 - 99 mg/dL INTERFACE SYSTEM 03/01/2007 4:08 PM HANDLE SEWER us Tono Cordoba MD POINT OF CARE TESTING Edited INTERFACE SYSTEM Refer to clinic/hospital department * (ABNORMAL) POC GLUCOSE (03/01/2007 11:38 AM HANDLE SEWER) GLUCOSE POC 104(H) 65 - 99 mg/dL INTERFACE SYSTEM 03/01/2007 11:3 8 AM HANDLE SEWER Result Bonnie Cordoba MD POINT OF CARE TESTING Edited Performing Organization Address City/[facility] Co de Phone Number INTERFACE SYSTEM Refer to clinic/hospital department * POC GLUCOSE (03/01/2007 6:23 AM HANDLE SEWER) GLUCOSE POC 88 65 - 99 mg/dL INTERFACE SYSTEM 03/01/2007 6:23 AM HANDLE SEWER Result Bonnie Cordoba MD POINT OF CARE TESTING Edited Performing Organization Address City/[facility] Co de Phone Number INTERFACE SYSTEM Refer to clinic/hospital department * (ABNORMAL) POC GLUCOSE (02/28/2007 8:29 PM HANDLE SEWER) GLUCOSE POC 105(H) 65 - 99 mg/dL INTERFACE SYSTEM 02/28/2007 8:29 PM HANDLE SEWER Result Bonnie Cordoba MD POINT OF CARE TESTING Edited INTERFACE SYSTEM Refer to clinic/hospital department * POC GLUCOSE (02/28/2007 4:29 PM HANDLE SEWER) COMMENT, GLU POC Notified RN INTERFACE SYSTEM GLUCOSE POC 88 65 - 99 mg/dL INTERFACE SYSTEM 02/28/2007 4:29 PM HANDLE SEWER Result Bonnie Cordoba MD POINT OF CARE TESTING Edited Performing Organization Address [facility] de Phone Number INTERFACE SYSTEM Refer to clinic/hospital department * POC GLUCOSE (02/28/2007 6:15 AM HANDLE SEWER) GLUCOSE POC 96 65 - 99 mg/dL INTERFACE SYSTEM 02/28/2007 6:15 AM HANDLE SEWER Result Bonnie Cordoba MD POINT OF CARE TESTING Edited Performing Organization Address [facility] Phone Number INTERFACE SYSTEM Refer to clinic/hospital department * (ABNORMAL) POC GLUCOSE (02/27/2007 9:06 PM HANDLE SEWER) GLUCOSE POC 111(H) 65 - 99 mg/dL INTERFACE SYSTEM 02/27/2007 9:06 PM HANDLE SEWER Result Bonnie Cordoba MD POINT OF CARE TESTING Edited Performing Organization Address [facility] Phone Number INTERFACE SYSTEM Refer to clinic/hospital department * (ABNORMAL) POC GLUCOSE (02/27/2007 4:19 PM HANDLE SEWER) COMMENT, GLU POC Notified RN INTERFACE SYSTEM GLUCOSE POC 106(H) 65 - 99 mg/dL INTERFACE SYSTEM 02/27/2007 4:19 PM HANDLE SEWER Result Bonnie Cordoba MD POINT OF CARE TESTING Edited Performing Organization Address [facility] Phone Number INTERFACE SYSTEM Refer to clinic/hospital department * (ABNORMAL) POC GLUCOSE (02/27/2007 12:02 PM HANDLE SEWER) GLUCOSE POC 116(H) 65 - 99 mg/dL INTERFACE SYSTEM 02/27/2007 12:0 2 PM HANDLE SEWER Result Bonnie Cordoba MD POINT OF CARE TESTING Edited Performing Organization Address [facility] de Phone Number INTERFACE SYSTEM Refer to clinic/hospital department * POC GLUCOSE (02/27/2007 6:02 AM HANDLE SEWER) COMMENT, GLU POC Notified RN INTERFACE SYSTEM GLUCOSE POC 92 65 - 99 mg/dL INTERFACE SYSTEM 02/27/2007 6:02 AM HANDLE SEWER Result Bnonie Cordoba MD POINT OF CARE TESTING Edited Performing Organization Address [facility] de Phone Number INTERFACE SYSTEM Refer to clinic/hospital department * POC GLUCOSE (02/26/2007 8:22 PM HANDLE SEWER) GLUCOSE POC 99 65 - 99 mg/dL INTERFACE SYSTEM 02/26/2007 8:22 PM HANDLE SEWER Result Bonnie Cordoba MD POINT OF CARE TESTING Edited Performing Organization Address [facility] de Phone Number INTERFACE SYSTEM Refer to clinic/hospital department * (ABNORMAL) POC GLUCOSE (02/26/2007 4:15 PM HANDLE SEWER) GLUCOSE POC 101(H) 65 - 99 mg/dL INTERFACE SYSTEM 02/26/2007 4:15 PM HANDLE SEWER Result Bonnei Cordoba MD POINT OF CARE TESTING Edited Performing Organization Address [facility] Phone Number INTERFACE SYSTEM Refer to clinic/hospital department * POC GLUCOSE (02/26/2007 11:36 AM HANDLE SEWER) COMMENT, GLU POC Notified RN INTERFACE SYSTEM GLUCOSE POC 80 65 - 99 mg/dL INTERFACE SYSTEM 02/26/2007 11:3 6 AM HANDLE SEWER Result Bonnie Cordoba MD POINT OF CARE TESTING Edited Performing Organization Address [facility] Co de Phone Number INTERFACE SYSTEM Refer to clinic/hospital department * POC GLUCOSE (02/26/2007 6:22 AM HANDLE SEWER) COMMENT, GLU POC Notified RN INTERFACE SYSTEM GLUCOSE POC 90 65 - 99 mg/dL INTERFACE SYSTEM 02/26/2007 6:22 AM HANDLE SEWER Result Bonnie Cordoba MD POINT OF CARE TESTING Edited Performing Organization Address [facility] de Phone Number INTERFACE SYSTEM Refer to clinic/hospital department * (ABNORMAL) POC GLUCOSE (02/25/2007 8:43 PM HANDLE SEWER) GLUCOSE POC 122(H) 65 - 99 mg/dL INTERFACE SYSTEM 02/25/2007 8:43 PM HANDLE SEWER Result Bonnie Cordoba MD POINT OF CARE TESTING Edited Performing Organization Address City/[facility] de Phone Number INTERFACE SYSTEM Refer to clinic/hospital department * POC GLUCOSE (02/25/2007 5:00 PM HANDLE SEWER) GLUCOSE POC 92 65 - 99 mg/dL INTERFACE SYSTEM 02/25/2007 5:00 PM HANDLE SEWER Result Bonnie Cordoba MD POINT OF CARE TESTING Edited Performing Organization Address [facility] de Phone Number INTERFACE SYSTEM Refer to clinic/hospital department * (ABNORMAL) POC GLUCOSE (02/25/2007 11:50 AM HANDLE SEWER) GLUCOSE POC 104(H) 65 - 99 mg/dL INTERFACE SYSTEM 02/25/2007 11:5 0 AM HANDLE SEWER us Tono Cordoba MD POINT OF CARE TESTING Edited Performing Organization Address [facility] de Phone Number INTERFACE SYSTEM Refer to clinic/hospital department * CBC WITH DIFFERENTIAL (02/25/2007 6:30 AM HANDLE SEWER) NEUTROPHILS 50 45 - 70 % INTERFAC E SYSTEM LYMPHOCYTES 34 16 - 45 % INTERFAC E SYSTEM MONOCYTES 11 3 - 13 % INTERFACE SYSTEM EOSINOPHILS 4 0 - 7 % INTERFAC E SYSTEM BASOPHILS 1 0 - 2 % INTERFACE SYSTEM NEUTROPHIL ABSOLUTE 4.20 1.90 - 7.00 K/uL INTERFACE SYSTEM LYMPHOCYTE ABSOLUTE 2.84 0.70 - 4.50 K/uL INTERFACE SYSTEM MONOCYTE ABSOLUTE 0.88 0.10 - 1.30 K/uL INTERFACE SYSTEM EOSINOPHIL ABSOLUTE 0.30 0.00 - 0.70 K/uL INTERFACE SYSTEM BASOPHILS ABSOLUTE 0.11 0.00 - 0.20 K/uL INTERFACE SYSTEM 02/25/2007 6:30 AM HANDLE SEWER us Tono Cordoba MD HEMATOLOGY ORDERABLES Edited Performing Organization Address City/State/[facility] Co ok Phone Number INTERFACE SYSTEM Refer to clinic/hospital department * (ABNORMAL) CBC WITH DIFFERENTIAL (02/25/2007 6:30 AM HANDLE SEWER) WBC 8.3 4.0 - 9.8 K/uL INTERFACE SYSTEM RBC 4.46(L) 4.50 - 5.40 M/uL INTERFACE SYSTEM HEMOGLOBIN 13.9 13.6 - 16.5 g/dL INTERFACE SYSTEM HEMATOCRIT 42.1 40.0 - 48.0 % INTERFACE SYSTEM MCV 94.4 82.0 - 99.0 fL INTERFACE SYSTEM MCH 31.2 27.2 - 32.6 pg INTERFACE SYSTEM MCHC 33.0 31.5 - 35.5 % INTERFACE SYSTEM RDW 14.5 11.5 - 14.5 % INTERFACE SYSTEM RDW-STDEV 48.9(H) 37.1 - 48.7 fL INTERFACE SYSTEM PLATELETS 351(H) 140 - 350 K/uL INTERFACE SYSTEM MPV 11.2 9.3 - 12.4 fL INTERFACE SYSTEM 02/25/2007 6:30 AM HANDLE SEWER us Tono Cordoba MD HEMATOLOGY ORDERABLES Edited Performing Organization Address [facility] Phone Number INTERFACE SYSTEM Refer to clinic/hospital department * CORTISOL LEVEL (02/25/2007 6:30 AM HANDLE SEWER) CORTISOL LEVEL 13.2 ug/dL INTER FACE SYSTEM Comment: Cortisol Reference Range: 7 - 10 AM: 6.2 - 19.4 ug/dL 4 - 8 PM: 2.3 - 11.9 ug/dL 02/25/2007 6:30 AM HANDLE SEWER us Tono Cordoba MD CHEMISTRY ORDERABLES Edited Performing Organization Address City/[facility] Co ok Phone Number INTERFACE SYSTEM Refer to clinic/hospital department * TSH (02/25/2007 6:30 AM HANDLE SEWER) TSH 2.48 0.27 - 4.20 uU/mL INTERFACE SYSTEM 02/25/2007 6:30 AM HANDLE SEWER us Tono Cordoba MD CHEMISTRY ORDERABLES Edited Performing Organization Address City/State/[facility] Co de Phone Number INTERFACE SYSTEM Refer to clinic/hospital department * C-REACTIVE PROTEIN (02/25/2007 6:30 AM HANDLE SEWER) CRP 0.8 0.0 - 0.8 mg/dL INTERFACE SYSTEM 02/25/2007 6:30 AM HANDLE SEWER us Tono Cordoba MD CHEMISTRY ORDERABLES Edited Performing Organization Address City/[facility] Co de Phone Number INTERFACE SYSTEM Refer to clinic/hospital department * (ABNORMAL) COMPREHENSIVE METABOLIC PANEL (02/25/2007 6:30 AM HANDLE SEWER) GLUCOSE 64(L) 65 - 99 mg/dL INTERFACE SYSTEM CREATININE 0.84 0.67 - 1.17 mg/dL INTERFACE SYSTEM CALCIUM 8.8 8.4 - 10.2 mg/dL INTERFACE SYSTEM ALKALINE PHOSPHATASE 95 40 - 129 U/L INTERFACE SYSTEM AST 20 12 - 38 U/L INTERFACE SYSTEM ALT 32 0 - 41 U/L INTERFACE SYSTEM TOTAL PROTEIN 7.5 6.3 - 8.6 g/dL INTERFACE SYSTEM ALBUMIN 3.3(L) 3.4 - 4.8 g/dL INTERFACE SYSTEM BILIRUBIN TOTAL 0.3 0.2 - 1.0 mg/dL INTERFACE SYSTEM BUN 16 6 - 20 mg/dL INTERFACE SYSTEM SODIUM 135 135 - 145 mmol/L INTERFACE SYSTEM POTASSIUM 3.9 3.5 - 4.9 mmol/L INTERFACE SYSTEM CHLORIDE 98 96 - 108 mmol/L INTERFACE SYSTEM CO2 31(H) 22 - 30 mmol/L INTERFACE SYSTEM GFR, >60 >=60 mL/min/1. 7 sq meter INTERFACE SYSTEM GFR >60 >=60 mL/min/1. 7 sq meter INTERFACE SYSTEM Comment: Estimated GFR rate interpretative information for both Americans and non- Americans is available on the [facility] Intranet at: [email or web address] Select: Lab Policies and Procedures Select: Reference Ranges - GFR 02/25/2007 6:30 AM HANDLE SEWER Result Bonnie Cordoba MD CHEMISTRY ORDERABLES Edited Performing Organization Address [facility] Phone Number INTERFACE SYSTEM Refer to clinic/hospital department * POC GLUCOSE (02/25/2007 6:11 AM HANDLE SEWER) COMMENT, GLU POC Notified RN INTERFACE SYSTEM GLUCOSE POC 80 65 - 99 mg/dL INTERFACE SYSTEM 02/25/2007 6:11 AM HANDLE SEWER Result Bonnie Cordoba MD POINT OF CARE TESTING Edited Performing Organization Address [facility] Phone Number INTERFACE SYSTEM Refer to clinic/hospital department * (ABNORMAL) POC GLUCOSE (02/24/2007 8:47 PM HANDLE SEWER) GLUCOSE POC 105(H) 65 - 99 mg/dL INTERFACE SYSTEM 02/24/2007 8:47 PM HANDLE SEWER Result Bonnie Cordoba MD POINT OF CARE TESTING Edited Performing Organization Address [facility] Phone Number INTERFACE SYSTEM Refer to clinic/hospital department * (ABNORMAL) URINALYSIS (02/24/2007 7:04 PM HANDLE SEWER) COLOR UA Yellow INTERFACE SYSTEM CLARITY UA Clear Clear INTERFACE SYSTEM SPECIFIC GRAVITY UA 1.011 1.001 - 1.035 INTERFACE SYSTEM PH UA 5.0 5.0 - 8.0 INTERFACE SYSTEM LEUKOCYTE ESTERASE UA Trace(A) Negative INTERFACE SYSTEM NITRITE UA Negative Negative INTERFACE SYSTEM PROTEIN UA Negative Negative INTERFACE SYSTEM GLUCOSE UA Negative Negative INTERFACE SYSTEM KETONES UA Negative Negative INTERFACE SYSTEM UROBILINOGEN UA <1 <=1 mg/dL INTE RFACE SYSTEM BILIRUBIN UA Negative Negative INTERFA CE SYSTEM BLOOD UA Negative Negative INTERFACE SYSTEM WBC UA 2 0 - 3 /HPF INTERFACE SYSTEM RBC UA 1 0 - 3 /HPF INTERFACE SYSTEM 02/24/2007 7:04 PM HANDLE SEWER Result Bonnie Cordoba MD URINE ORDERABLES Edited INTERFACE SYSTEM Refer to clinic/hospital department documented in this encounter Visit Diagnoses Not on filedocumented in this encounter Care Teams Pharmacy Delivery Driver Relationship Specialty Start Date End Date Romero Robin DO [address] [facility] [address] [place] [address] PCP - General Internal Medicine 01/09/19 documented as of this encounter
--- OUTSIDE RECORDS SUMMARY | 2024-07-16 12:26 | XMS_ITS | Encounter Summary ---
Author Organization [facility] Address [address] [place] [address] Care Team Providers Care Wick Tender Name Role Phone Romero Robin DO Primary Care Provider Encounter Details Date Type Department Care Team (Latest Contact Info) Description 05/16/2007 Outpatient Historical [facility] Hand Therapy [address] [place] [address] Tono Cordoba MD [address] [place] [address] Speech Therapy (Primary Dx) Social History Tobacco Use Types Packs/Day Years Used Date Smoking Tobacco: Never Assessed Sex and Gender Information Value Date Recorded Sex Assigned at Not on file Legal Sex Male 5:27 AM FOOD TECHNOLOGIST Gender Identity Not on file Sexual Orientation Not on file documented as of this encounter Plan of Treatment Not on file documented as of this encounter Visit Diagnoses Diagnosis Care involving speech-language therapy- Primary documented in this encounter Care Teams Wick Tender Relationship Specialty Start Date End Date Romero Robin DO [address] [phone] PCP - General Internal Medicine 01/09/19 documented as of this encounter
--- OUTSIDE RECORDS SUMMARY | 2024-07-16 12:26 | XMS_ITS | Clinical Summary ---
Author Organization [facility] Address [address] [place] [address] Care Team Providers Care Mems Integration Engineer Name Role Phone Romero Robin DO Primary Care Provider [phone]- [phone] Allergies No known active allergies Medications levETIRAcetam [...] Frequent headaches 07/12/2016 Injury of head 12/20/2011 Surgical History Surgery Date Site/Laterality Comments CRANIOTOMY 04/01/2006 - 03/31/2007 Left Medical History Medical History Date Comments TBI (traumatic brain injury) (HCC) Hypertension Chronic headache Anxiety Depression Type 2 diabetes mellitus (HCC) HLD (hyperlipidemia) IBS (irritable bowel syndrome) Family History Medical History Relation Name Comments Bladder Cancer Father Diabetes Father Emphysema Mother Diabetes Sister 1 Relation Name Status Comments Brother Father Mother Sister 1 Sister 2 Social History Tobacco Use Types Packs/Day Years Used Date Smoking Tobacco: Every Day Cigarettes Smokeless Tobacco: Never Alcohol Use Standard Drinks/Week Comments Not Currently 0 (1 standard drink = 0.6 oz pur e alcohol) Sex and Gender Information Value Date Recorded Sex Assigned at Not on file Legal Sex Male 8:05 AM DROP FORGE HAND Gender Identity Not on file Sexual Orientation Not on file Occupation Industry Job Start Date Job End Date disability Not on file Not on file Not on file Obstetrics History Last Filed Vital Signs Vital Sign Reading [...] 10/08/2020 11:31 AM CDT Plan of Treatment Health Maintenance Due Date Last Done Comments Colon Cancer Screening-Colonoscopy 1961 Depression Screening 1961 Hepatitis C Screening 1961 Prostate Cancer Screening-PSA 1961 DTaP/Tdap/Td Vaccine (1 - Tdap) 1972 Hepatitis B Screening 08/15/1979 Regular Well Visit/Exam 18-64 08/15/1979 Pneumococcal vaccine <65 (1 of 2 - PCV) 1980 Zoster Vaccine (1 of 2) 08/15/2011 Influenza Vaccine (#1) 2023 Insurance MEDICARE [facility] MEDICARE ADVANTAGE Care Teams Mems Integration Engineer Relationship Specialty Start Date End Date Romero Robin DO PCP - General Internal Medicine 11/15/23
--- OUTSIDE RECORDS SUMMARY | 2024-07-16 12:26 | XMS_ITS | Encounter Summary ---
Author Organization [facility] Address [address] [place] [address] Care Team Providers Care Architectural Engineer Name Role Phone Romero Robin DO Primary Care Provider Encounter Details Date Type Department Care Team (Latest Contact Info) Description 11/24/2007 Outpatient Historical [facility] ST Hand Therapy [address] [place] [address] Tono Cordoba MD [address] [place] [address] Other Specified Rehabilitation Procedure (Primary Dx) Social History Tobacco Use Types Packs/Day Years Used Date Smoking Tobacco: Never Assessed Sex and Gender Information Value Date Recorded Sex Assigned at Not on file Legal Sex Male 5:27 AM GOLD MINER Gender Identity Not on file Sexual Orientation Not on file documented as of this encounter Plan of Treatment Not on file documented as of this encounter Visit Diagnoses Diagnosis Other specified rehabilitation procedure(V57.89)- Primary Other specified rehabilitation procedure documented in this encounter Care Teams Architectural Engineer Relationship Specialty Start Date End Date Romero Robin DO [address] [address] PCP - General Internal Medicine 01/09/19 documented as of this encounter
--- OUTSIDE RECORDS SUMMARY | 2024-07-16 12:26 | XMS_ITS | Encounter Summary ---
Author Organization [facility] Address [address] [place] [address] Care Team Providers Care Fabric Normalizer Name Role Phone Romero Robin DO Primary Care Provider Encounter Details Date Type Department Care Team (Latest Contact Info) Description 09/21/2007 Outpatient Historical [facility] ST Hand Therapy [address] [place] [address] Tono Cordoba MD [address] [place] [address] Other Specified Rehabilitation Procedure (Primary Dx) Social History Tobacco Use Types Packs/Day Years Used Date Smoking Tobacco: Never Assessed Sex and Gender Information Value Date Recorded Sex Assigned at Not on file Legal Sex Male 5:27 AM MEDICAL PRACTICE MANAGER Gender Identity Not on file Sexual Orientation Not on file documented as of this encounter Plan of Treatment Not on file documented as of this encounter Visit Diagnoses Diagnosis Other specified rehabilitation procedure(V57.89)- Primary Other specified rehabilitation procedure documented in this encounter Care Teams Fabric Normalizer Relationship Specialty Start Date End Date Romero Robin DO [address] [place] [address] [address] PCP - General Internal Medicine 01/09/19 documented as of this encounter
--- OUTSIDE RECORDS SUMMARY | 2024-07-16 12:26 | XMS_ITS | Encounter Summary ---
Author Organization [facility] Address [address] [place] [address] Care Team Providers Care Overhauler Name Role Phone Romero Robin DO Primary Care Provider Encounter Details Date Type Department Care Team (Latest Contact Info) Description 02/10/2008 Outpatient Historical [facility] Kirt Balderas, PhD Dept of Neuropsychology [address] [place] [address] [facility] Subarachnoid Hem ([facility]) Social History Tobacco Use Types Packs/Day Years Used Date Smoking Tobacco: Never Assessed Sex and Gender Information Value Date Recorded Sex Assigned at Not on file Legal Sex Male 5:27 AM CIRCUIT BOARD REPAIR TECHNICIAN Gender Identity Not on file Sexual Orientation [...] consciousness documented in this encounter Care Teams Overhauler Relationship Specialty Start Date End Date Romero Robin DO [address] [facility] [address] [place] [address] PCP - General Internal Medicine 01/09/19 documented as of this encounter
--- OUTSIDE RECORDS SUMMARY | 2024-07-16 12:26 | XMS_ITS | Encounter Summary ---
Author Organization [facility] Address [address] [place] [address] Care Team Providers Care Sailmaker Name Role Phone Romero Robin DO Primary Care Provider Encounter Details Date Type Department Care Team (Latest Contact Info) Description 08/20/2007 Outpatient Historical [facility] ST Hand Therapy [address] [place] [address] Tono Cordoba MD [address] [place] [address] Other Specified Rehabilitation Procedure (Primary Dx) Social History Tobacco Use Types Packs/Day Years Used Date Smoking Tobacco: Never Assessed Sex and Gender Information Value Date Recorded Sex Assigned at Not on file Legal Sex Male 5:27 AM TOBACCO SCRAP SIFTER Gender Identity Not on file Sexual Orientation Not on file documented as of this encounter Plan of Treatment Not on file documented as of this encounter Visit Diagnoses Diagnosis Other specified rehabilitation procedure(V57.89)- Primary Other specified rehabilitation procedure documented in this encounter Care Teams Sailmaker Relationship Specialty Start Date End Date Romero Robin DO [address] [phone] PCP - General Internal Medicine 01/09/19 documented as of this encounter
[2024-07-16 12:59] LABS: Basophils Absolute Auto 0.1 K/mm3 (0.0-0.1); Basophils Percent Auto 1.1 % (0.2-1.2); Eosinophils Absolute Auto 0.3 K/mm3 (0-0.3); Eosinophils Percent Auto 3.1 % (0-4.4); Hematocrit 58.7 % (42.0-52.0); Hemoglobin 19.5 g/dL (14.0-18.0); Immature Granulocyte Absolute 0.03 K/mm3 (0.00-0.031); Immature Granulocyte Percent A 0.3 % (0-0.5); Lymphocytes Absolute Auto 3.19 K/mm3 (0.9-3.2); Lymphocytes Percent Auto 33.3 % (18.3-44.2); Mean Corpuscular HGB Conc 33.2 g/dl (32-36); Mean Corpuscular Hemoglobin 31.8 pg (26-34); Mean Corpuscular Volume 95.8 fl (80-100); Mean Platelet Volume 10.7 fl (7.4-10.4); Monocytes Absolute Auto 0.8 K/mm3 (0.1-0.6); Monocytes Percent Auto 8.7 % (2.6-8.5); Neutrophils Absolute Auto 5.1 K/mm3 (1.3-6.7); Neutrophils Percent Auto 53.5 % (45.5-73.1); Platelet Count Result 214 k/mm3 (150-375); Red Blood Count 6.13 M/mm3 (4.6-6.20); Red Cell Distribution Width 13.6 % (11.5-14.5); White Blood Count 9.6 K/mm3 (4.5-10.0)
[2024-07-16 13:03] LABS: Alanine Aminotransferase 18 U/L (6-50); Albumin Level 4.1 g/dL (3.5-5.1); Alkaline Phosphatase 95 U/L (38-126); Anion Gap 7 mmol/L (4-12); Aspartate Amino Transferase 37 U/L (17-59); Bilirubin,Total 0.8 mg/dL (0.2-1.3); Blood Urea Nitrogen 17 mg/dL (9-20); Calcium 9.3 mg/dL (8.4-10.2); Carbon Dioxide 30 mmol/L (22-30); Chloride 103 mmol/L (98-107); Cholesterol 238 mg/dL (0-200); Estimated Glomerular Filt Rate > 60; Glucose 118 mg/dL (65-110); HDL Direct 48 mg/dL; Potassium 4.1 mmol/L (3.4-5.0); Sodium 140 mmol/L (137-145); Triglycerides 93 mg/dL (<150)
[2024-07-16 13:14] LABS: LDL Cholesterol Direct 156 mg/dL
[2024-07-16 13:33] LABS: Prostate Specific Antigen 1.1 ng/mL (< OR = 4.0)
[2024-07-16 13:40] LABS: Hemoglobin A1C 6.2 % (<5.7)
== END 2024-07-16 11:42 | disposition home or self-care (01) ==
PROVIDERS: PCP Internal Medicine; Visit Provider Nurse Practitioner
DX: I10 Essential (primary) hypertension (principal); E11.9 Type 2 diabetes mellitus without complications; Z12.5 Encounter for screening for malignant neoplasm of prostate; D75.1 Secondary polycythemia
CPT/HCPCS: 36415; 80053; 80061; 83036; 84153; 85025; G0103